=== PATIENT | male | born 1980 | race African-American/Black ===

== ENCOUNTER 2018-07-31 11:33 | Emergency (ER) | payer SELFPAY ==
[~2018-07-31] VITALS: Ht 172.7 cm; Wt 119.3 kg
[2018-07-31] MEDS ORDERED: LISINOPRIL 10 MG TABLET PO ONE (12:30)
--- NOTE | 2018-07-31 12:30 | PHYS DOC ---
Past Medical History Past Medical History: Hypertension Past Surgical History: No Surgical History Alcohol Use: None Drug Use: None Adult General Chief Complaint Chief Complaint: HYPERTENSION HPI HPI Patient is a 37 year old male with history of hypertension who presents today requesting a refill of his blood pressure medications. Patient states he moved here recently, has no PCP, ran out of his blood pressure medications 2 months ago. Patient denies any symptoms. Review of Systems Review of Systems Constitutional: Denies fever or chills [] Eyes: Denies change in visual acuity, redness, or eye pain [] HENT: Denies nasal congestion or sore throat [] Respiratory: Denies cough or shortness of breath [] Cardiovascular: Request for blood pressure medications. No additional information not addressed in HPI [] GI: Denies abdominal pain, nausea, vomiting, bloody stools or diarrhea [] : Denies dysuria or hematuria [] Musculoskeletal: Denies back pain or joint pain [] Integument: Denies rash or skin lesions [] Neurologic: Denies headache, focal weakness or sensory changes [] All other systems were reviewed and found to be within normal limits, except as documented in this note. Current Medications Current Medications Current Medications Medications (Trade) Dose Ordered Sig/Jaya Start Time Stop Time Status Last Admin Dose Admin Lisinopril (Prinivil) 20 mg 1X ONCE 07/31/18 12:30 07/31/18 12:31 Allergies Allergies Allergies Coded Allergies Type Severity Reaction Last Updated Verified No Known Drug Allergies 07/31/18 No Physical Exam Physical Exam Constitutional: Well developed, well nourished, no acute distress, non-toxic appearance. [] HENT: Normocephalic, atraumatic, bilateral external ears normal, oropharynx moist, no oral exudates, nose normal. [] Eyes: PERRLA, EOMI, conjunctiva normal, no discharge. [] Neck: Normal range of motion, no tenderness, supple, no stridor. [] Cardiovascular:Heart rate regular rhythm, no murmur [] Lungs & Thorax: Bilateral breath sounds clear to auscultation [] Abdomen: Bowel sounds normal, soft, no tenderness, no masses, no pulsatile masses. [] Skin: Warm, dry, no erythema, no rash. [] Back: No tenderness, no CVA tenderness. [] Extremities: No tenderness, no cyanosis, no clubbing, ROM intact, no edema. [] Neurologic: Alert and oriented X 3, normal motor function, normal sensory function, no focal deficits noted. [] Psychologic: Affect normal, judgement normal, mood normal. [] Current Patient Data Vital Signs Vital Signs Date Time Temp Pulse Resp B/P (MAP) Pulse Ox O2 Delivery O2 Flow Rate FiO2 07/31/18 12:12 98.1 76 18 174/106 (128) 99 Room Air 98.1 EKG EKG [] Radiology/Procedures Radiology/Procedures [] Course & Med Decision Making Course & Med Decision Making Pertinent Labs and Imaging studies reviewed. (See chart for details) This is a 37-year-old male patient presented to the ED today requesting a refill of his blood pressure medications. Patient has no PCP. Moved here recently. He is on lisinopril 20 mg. Premarin out of the medication 2 months ago. Has no other complaints. Patient unable to the ED is 174/106 HR in the 70s. Patient was given a refill of his blood pressure medication as well as a list of doctors to follow up as an outpatient Dragon Disclaimer Dragon Disclaimer This electronic medical record was generated, in whole or in part, using a voice recognition dictation system. Departure Departure Impression: Primary Impression: Hypertension Disposition: 01 HOME, SELF-CARE Condition: STABLE Patient Instructions: Hypertension Additional Instructions: You were evaluated in the emergency room, we gave you a list of primary care doctors, contact one of them and establish care for blood pressure management. Come back to the ED at any point symptoms worsen. Scripts Lisinopril (LISINOPRIL) 20 Mg Tablet 1 TAB PO DAILY, #90 TAB 0 Refills Prov: LORAINE MARROQUIN APRN 07/31/18 Problem Qualifiers Primary Impression: Hypertension Hypertension type: essential hypertension Qualified Codes: I10 - Essential ( primary) hypertension LORAINE MARROQUIN APRN Jul 31, 2018 12:30
[2018-07-31] MEDS ORDERED: LISI-334 PO (12:31)
[2018-07-31 12:38] VITALS: BP 171/110
== END 2018-07-31 12:42 | disposition home or self-care (01) ==
LOC: EDSEX 11:33 → ER 11:33
DX: I10 Essential (primary) hypertension (principal)
CPT/HCPCS: 99283

== ENCOUNTER 2019-01-30 09:38 | Emergency (ER) | payer OTHER ==
[~2019-01-30] VITALS: Ht 172.7 cm; Wt 119.3 kg
[~2019-01-30 09:38] MED LIST: LISI-334 PO
--- NOTE | 2019-01-30 10:07 | PHYS DOC ---
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 This happened 3 days ago. The patient is continuing to have lateral pain to his left foot and edema. He states that his pain is 1 out of 10 in severity without weightbearing but increases once he bears weight to the foot. The patient has not taken any medicine prior to arrival. Review of Systems Review of Systems Constitutional: Denies fever or chills [] Eyes: Denies change in visual acuity, redness, or eye pain [] HENT: Denies nasal congestion or sore throat [] Respiratory: Denies cough or shortness of breath [] Cardiovascular: No additional information not addressed in HPI [] GI: Denies abdominal pain, nausea, vomiting, bloody stools or diarrhea [] : Denies dysuria or hematuria [] Musculoskeletal: Reports pain to L foot. Integument: Denies rash or skin lesions [] Neurologic: Denies headache, focal weakness or sensory changes [] Endocrine: Denies polyuria or polydipsia [] Complete systems were reviewed and found to be within normal limits, except as documented in this note. Current Medications Current Medications Current Medications Medications (Trade) Dose Ordered Sig/Jaya Start Time Stop Time Status Last Admin Dose Admin Ketorolac Tromethamine (Toradol 30mg Vial) 30 mg 1X STAT 01/30/19 10:11 01/30/19 10:12 DC 01/30/19 10:29 30 MG Allergies Allergies Allergies Coded Allergies Type Severity Reaction Last Updated Verified No Known Drug Allergies 07/31/18 No Physical Exam Physical Exam Constitutional: Well developed, well nourished, no acute distress, non-toxic appearance. [] HENT: Normocephalic, atraumatic, bilateral external ears normal, oropharynx moist, no oral exudates, nose normal. [] Eyes: PERRLA, EOMI, conjunctiva normal, no discharge. [] Neck: Normal range of motion, no tenderness, supple, no stridor. [] Skin: Warm, dry, no erythema, no rash. [] Back: No tenderness, no CVA tenderness. [] Extremities: Tenderness to lateral L foot near the navicular area with mild edema Neurologic: Alert and oriented X 3, normal motor function, normal sensory function, no focal deficits noted. [] Psychologic: Affect normal, judgement normal, mood normal. [] Current Patient Data Vital Signs Vital Signs Date Time Temp Pulse Resp B/P (MAP) Pulse Ox O2 Delivery O2 Flow Rate FiO2 01/30/19 09:40 98.4 63 20 153/106 (122) 98 Room Air 98.4 EKG EKG [] Radiology/Procedures Radiology/Procedures [][facility] [address] [place], [place] [id number] IMAGING REPORT Signed PATIENT: URSULA LOPEZ: [id number] : 1980 LOCATION: ER AGE: 38 SEX: M EXAM STATUS: REG ER ORD. PHYSICIAN: GIL SILVERMAN APRN REASON: trauma, pain, edema, left lateral foot pain x 1 week PROCEDURE: FOOT LEFT 3V Three-view left foot radiographs 01/30/2019 CLINICAL HISTORY: Left lateral foot pain for one week. Injury. AP, lateral and oblique digital radiographs of the left foot were obtained. No fracture or dislocation left foot is seen. Mild hallux deformity is noted. Mild degenerative changes are seen involving the first MTP joint. Mild enthesophyte formation is seen involving the posterior left calcaneus. Mild degenerative changes are seen involving the talonavicular joint. IMPRESSION: No fracture or dislocation of the left foot is seen. Electronically signed by: Javan Alonso MD (01/30/2019 11:47 AM) [id number] DICTATED and SIGNED BY: JAVAN ALONSO MD DATE: 01/30/19 1142 Course & Med Decision Making Course & Med Decision Making Pertinent Labs and Imaging studies reviewed. (See chart for details) Will get x-ray of the left foot. Patient is [place] foot rule positive. Imaging is negative. Will d/c home. Dragon Disclaimer Dragon Disclaimer This electronic medical record was generated, in whole or in part, using a voice recognition dictation system. Departure Departure Impression: Primary Impression: Foot pain Disposition: HOME, SELF-CARE Condition: STABLE Referrals: UNKNOWN PCP NAME (PCP) Patient Instructions: Foot Contusion Additional Instructions: Thank you for visiting [facility]. We appreciate you trusting us with your care. If any additional problems come up don't hesitate to return to visit us. Please follow up with your primary care provider so they can plan additional care if needed and know about the problem that you had. If symptoms worsen come back to the Emergency Department. Any concerning symptoms that start such as chest pain, shortness of air, weakness or numbness on one side of the body, running high fevers or any other concerning symptoms return to the ER. Problem Qualifiers Primary Impression: Foot pain Laterality: left Qualified Codes: M79.672 - Pain in left foot GIL SILVERMAN APRN Jan 30, 2019 10:07
[2019-01-30] MEDS ORDERED: KETOROLAC 30 MG/ML VIAL. IM STA (10:11)
--- NOTE | 2019-01-30 11:50 | RAD ---
Three-view left foot radiographs 01/30/2019 CLINICAL HISTORY: Left lateral foot pain for one week. Injury. AP, lateral and oblique digital radiographs of the left foot were obtained. No fracture or dislocation left foot is seen. Mild hallux deformity is noted. Mild degenerative changes are seen involving the first MTP joint. Mild enthesophyte formation is seen involving the posterior left calcaneus. Mild degenerative changes are seen involving the talonavicular joint. IMPRESSION: No fracture or dislocation of the left foot is seen. Electronically signed by: Javan Wilder MD (01/30/2019 11:47 AM) [id number]
[2019-01-30 12:23] VITALS: BP 158/117
== END 2019-01-30 12:24 | disposition home or self-care (01) ==
LOC: ER 09:38
DX: M79.672 Pain in left foot (principal); R60.0 Localized edema; I10 Essential (primary) hypertension; G89.11 Acute pain due to trauma; W23.0XXA Caught, crushed, jammed, or pinched between moving objects, initial encounter; Y93.89 Activity, other specified; Y92.69 Other specified industrial and construction area as the place of occurrence of the external cause; Y99.0 Civilian activity done for income or pay
CPT/HCPCS: 73630; 96372; 99284; J1885